=== PATIENT | female | born 1950 | race African-American/Black ===

== ENCOUNTER 2016-06-11 08:32 | Emergency (ER) | payer MEDICARE, MEDICAID ==
[~2016-06-11 08:32] MED LIST: Donnatal Elixir 16.2 MG/5 ML UDCUP ONE; Sodium Chloride 0.9% 1,000 ML BAG ONE
[2016-06-11 09:26] LABS: #Basophils 0.2 thou/uL (0.0-0.2); #Lymphocytes 2.5 thou/uL (1.20-3.40); #Monocytes 0.5 thou/uL (0.11-0.59); %Eosinophils 0.3 % (0.0-10.0); %Lymphocytes 27.4 % (21.0-51.0); %Monocytes 5.4 % (0.0-10.0); %Neutrophils 64.8 % (42.0-75.0); Hemoglobin 14.7 g/dL (12.0-16.0); Mean Corpuscular HGB CONC 33.3 g/dL (32.0-36.0); Mean Corpuscular Hemoglobin 28.3 pg (27.0-31.0); Mean Platelet Volume 7.1 fL (7.4-10.4); Platelet Count 410 thou/uL (130-400); RBC Distribution Width 11.6 % (11.5-14.5); White Blood Cell (WBC) Count 9.3 thou/uL (4.8-10.8)
[2016-06-11] MEDS ORDERED: Ondansetron HCl/PF 4 MG/2 ML Vial ONE (09:27)
[2016-06-11] MEDS ORDERED: Ketorolac Tromethamine 30 MG/ML VIAL ONE (09:27)
[2016-06-11 09:39] LABS: ALT (SGPT) 20 U/L (0-55); AST (SGOT) 19 U/L (5-34); Albumin 4.5 g/dL (3.4-4.8); Alkaline Phosphatase 125 U/L (40-150); Amylase 62 U/L (25-125); Anion Gap 21 mmol/L (10-20); BUN (Urea Nitrogen) 16 mg/dL (9.8-20.1); Bilirubin, Total 0.8 mg/dL (0.2-1.2); Calc. Creatinine Clearance 0 mL/min (70-130); Calcium 10.5 mg/dL (7.8-10.44); Carbon Dioxide 22 mmol/L (23-31); Chloride 97 mmol/L (98-107); Estimated GFR-MDRD 72; Globulin 4.4 g/dL (2.4-3.5); Glucose 222 mg/dL (80-115); Lipase 29 U/L (8-78); Potassium 3.9 mmol/L (3.5-5.1); Protein, Total 8.9 g/dL (5.8-8.1); Sodium 136 mmol/L (136-145)
--- NOTE | 2016-06-11 09:51 | RAD ---
PORTABLE CHEST 1 VIEW: Date: 06/11/16 Time: 0935 hours HISTORY: Nausea, vomiting, and upper abdominal pain. FINDINGS: Comparison made with exam of 01/29/15. The heart size is borderline. No confluent areas of consolidation, pneumothorax, chance pulmonary hector ma, or pleural effusions are seen. IMPRESSION: No radiographic evidence of acute cardiopulmonary process. POS: [facility]
[2016-06-11] MEDS ORDERED: Mag-Al Plus 1200 MG/1200 MG/120 MG/30 ML UDCUP ONE (10:37)
[2016-06-11] MEDS ORDERED: Donnatal Elixir 16.2 MG/5 ML UDCUP ONE (10:37)
[2016-06-11] MEDS ORDERED: Lidocaine Viscous Sol 2% 15 ml UD Cup ONE (10:37)
[2016-06-11 11:41] LABS: Bilirubin Negative (Negative); Blood, Urine Trace (Negative); Clarity Clear (Clear); Glucose, Urine (Dipstick) 500 mg/dL (Negative); Leukocyte Negative (Negative); Nitrite Negative (Negative); Protein, Urine (Dipstick) > or equal to 300 mg/dL (Neg-Trace); Specific Gravity, Urine 1.025 (1.005-1.030); Urobilinogen 0.2 mg/dL (0.2-1.0); pH, Urine 8.5 (5.0-9.0)
[2016-06-11 11:52] LABS: Bacteria/HPF Rare-Few HPF (None Seen); RBC/HPF 0-3 HPF (0-3); Squamous Epithelial 0-3 HPF (0-3); WBC/HPF None Seen HPF (0-3)
--- NOTE | 2016-06-11 13:33 | CT ---
CT ABDOMEN AND PELVIS WITH IV CONTRAST: TECHNIQUE: Multiple axial tomograms were obtained through the abdomen and pelvis with IV enhancement. Oral con trast was given. HISTORY: Upper abdominal pain. Vomiting. FINDINGS: Lung bases are clear. Liver, spleen, and pancreas appear unremarkable. Stomach and duodenum appear unremarkable. Adrenal glands appear normal. Kidneys unremarkable. Urinary bladder is mildly contracted and unremarkable. Small bowel loops are normal caliber. Appendix appears normal. Scattered stool throughout the colo n. No evidence of diverticulitis or other inflammatory process. Aorta is normal caliber. No adenopathy. IMPRESSION: No evidence of acute process. POS: [facility]
[2016-06-11] MEDS ORDERED: Acetaminophen 500 MG TAB ONE (17:10)
== END 2016-06-11 14:50 | disposition home or self-care (01) ==
LOC: MADERS 08:32
DX: K29.00 Acute gastritis without bleeding (principal); I10 Essential (primary) hypertension; E11.9 Type 2 diabetes mellitus without complications; Z79.899 Other long term (current) drug therapy; Z79.4 Long term (current) use of insulin
CPT/HCPCS: 71010; 74177; 80053; 81003; 81015; 82150; 83690; 83880; 85025; 87086; 93005; 96361; 96374; 96375; J1885; J2270; J2405; J7050

== ENCOUNTER 2017-01-30 06:53 | Emergency (ER) | payer MEDICARE, MEDICAID ==
[2017-01-30] MEDS ORDERED: Ondansetron ODT 4 MG TAB ONE (07:24)
[2017-01-30 07:38] LABS: Bilirubin Negative (Negative); Blood, Urine Trace (Negative); Clarity Clear (Clear); Glucose, Urine (Dipstick) 500 mg/dL (Negative); Leukocyte Negative (Negative); Nitrite Negative (Negative); Protein, Urine (Dipstick) > or equal to 300 mg/dL (Neg-Trace); Urobilinogen 0.2 mg/dL (0.2-1.0)
[2017-01-30 07:39] LABS: Bacteria/HPF None Seen HPF (None Seen); RBC/HPF 0-3 HPF (0-3); Squamous Epithelial 0-3 HPF (0-3); WBC/HPF 0-3 HPF (0-3)
--- NOTE | 2017-01-30 07:45 | RAD ---
CHEST 2 VIEWS: HISTORY: Cough. COMPARISON: 06/11/16. FINDINGS: Cardiac silhouette and pulmonary vasculature are unremarkable. Mediastinum is midline. There is no confluent airspace consolidation, or pleural fluid evident. Postoperative changes of the shoulders are apparent. IMPRESSION: No active cardiopulmonary abnormalities are demonstrated. POS: [facility]
== END 2017-01-30 08:04 | disposition home or self-care (01) ==
LOC: MADERS 06:53
DX: R11.0 Nausea (principal); I10 Essential (primary) hypertension; E11.9 Type 2 diabetes mellitus without complications; Z79.4 Long term (current) use of insulin
CPT/HCPCS: 36416; 71020; 81003; 81015; Q0162

== ENCOUNTER 2017-05-28 01:34 | Emergency (ER) | payer MEDICARE, MEDICAID ==
[2017-05-28] MEDS ORDERED: Diazepam 5 MG TAB ONE (02:12)
[2017-05-28] MEDS ORDERED: Naproxen 500 MG TAB ONE (02:12)
[2017-05-28] MEDS ORDERED: Lorazepam 1 MG TAB ONE (02:12)
[2017-05-28] MEDS ORDERED: HYDROcodone/Acetaminophen 10/325 mg Tablet ONE (02:12)
[2017-05-28 02:30] LABS: #Basophils 0.1 thou/uL (0.0-0.2); #Eosinphils 0.1 thou/uL (0.0-0.7); #Lymphocytes 2.6 thou/uL (1.20-3.40); #Monocytes 0.4 thou/uL (0.11-0.59); #Neutrophils 3.2 thou/uL (1.40-6.50); %Basophils 1.7 % (0.0-1.0); %Eosinophils 1.3 % (0.0-10.0); %Lymphocytes 40.3 % (21.0-51.0); %Monocytes 6.9 % (0.0-10.0); %Neutrophils 49.8 % (42.0-75.0); Hemoglobin 12.7 g/dL (12.0-16.0); Mean Corpuscular Hemoglobin 29.2 pg (27.0-31.0); Mean Corpuscular Volume 88.7 fl (81.0-99.0); Mean Platelet Volume 7.6 fL (7.4-10.4); Platelet Count 261 thou/uL (130-400); RBC Distribution Width 12.6 % (11.5-14.5); Red Blood Cell (RBC) Count 4.33 mill/uL (4.20-5.40); White Blood Cell (WBC) Count 6.4 thou/uL (4.8-10.8)
[2017-05-28 02:40] LABS: Bilirubin Negative (Negative); Blood, Urine Negative (Negative); Clarity Clear (Clear); Glucose, Urine (Dipstick) 500 mg/dL (Negative); Leukocyte Negative (Negative); Nitrite Negative (Negative); Protein, Urine (Dipstick) 30 mg/dL (Neg-Trace); Specific Gravity, Urine 1.015 (1.005-1.030); Urobilinogen 0.2 mg/dL (0.2-1.0); pH, Urine 7.5 (5.0-9.0)
[2017-05-28 02:41] LABS: Bacteria/HPF None Seen HPF (None Seen); RBC/HPF 0-3 HPF (0-3); Squamous Epithelial 0-3 HPF (0-3); WBC/HPF 0-3 HPF (0-3)
[2017-05-28 02:47] LABS: ALT (SGPT) 18 U/L (8-55); AST (SGOT) 15 U/L (5-34); Acetaminophen Less than 6.0 mcg/mL (10.0-30.0); Albumin 3.5 g/dL (3.4-4.8); Alcohol Less than 10 mg/dL (Less than 10); Alkaline Phosphatase 97 U/L (40-150); Anion Gap 14 mmol/L (10-20); BUN (Urea Nitrogen) 21 mg/dL (9.8-20.1); Bilirubin, Total 0.5 mg/dL (0.2-1.2); Calc. Creatinine Clearance 0 mL/min (70-130); Calcium 8.9 mg/dL (7.8-10.44); Carbon Dioxide 24 mmol/L (23-31); Chloride 103 mmol/L (98-107); Estimated GFR-MDRD 84; Globulin 3.4 g/dL (2.4-3.5); Glucose 333 mg/dL (80-115); Potassium 4.1 mmol/L (3.5-5.1); Protein, Total 6.9 g/dL (6.0-8.3); Salicylate Less than 8.0 mg/dL (15.0-30.0); Sodium 137 mmol/L (136-145)
== END 2017-05-28 03:55 | disposition home or self-care (01) ==
LOC: EDBD → MADERS 01:34
DX: M62.830 Muscle spasm of back (principal); I10 Essential (primary) hypertension; E11.9 Type 2 diabetes mellitus without complications; Z79.4 Long term (current) use of insulin; Z79.899 Other long term (current) drug therapy
CPT/HCPCS: 36415; 80053; 80307; 81001; 85025; 87086; 99283

== ENCOUNTER 2017-08-23 03:12 | Emergency (ER) | payer MEDICARE, OTHER ==
[2017-08-23 03:46] LABS: Bilirubin Negative (Negative); Blood, Urine Negative (Negative); Clarity Clear (Clear); Glucose, Urine (Dipstick) 250 mg/dL (Negative); Leukocyte Negative (Negative); Nitrite Negative (Negative); Protein, Urine (Dipstick) 30 mg/dL (Neg-Trace); Urobilinogen 0.2 mg/dL (0.2-1.0)
[2017-08-23 03:50] LABS: RBC/HPF 0-3 HPF (0-3); WBC/HPF 0-3 HPF (0-3)
[2017-08-23 03:51] LABS: Bacteria/HPF None Seen HPF (None Seen)
[2017-08-23 03:57] LABS: Anion Gap 18 mmol/L (10-20); BUN (Urea Nitrogen) 12 mg/dL (9.8-20.1); Calc. Creatinine Clearance 0 mL/min (70-130); Calcium 9.3 mg/dL (7.8-10.44); Carbon Dioxide 23 mmol/L (23-31); Chloride 105 mmol/L (98-107); Estimated GFR-MDRD 89; Glucose 225 mg/dL (80-115); Potassium 3.8 mmol/L (3.5-5.1); Sodium 142 mmol/L (136-145)
[2017-08-23 04:01] LABS: %Lymphocytes 17.4 % (21.0-51.0); %Neutrophils 75.6 % (42.0-75.0); Hemoglobin 12.5 g/dL (12.0-16.0); Mean Corpuscular HGB CONC 33.8 g/dL (32.0-36.0); Mean Corpuscular Hemoglobin 28.8 pg (27.0-31.0); Mean Corpuscular Volume 85.3 fL (81.0-99.0); Platelet Count 248 thou/uL (130-400); RBC Distribution Width 12.4 % (11.5-14.5); Red Blood Cell (RBC) Count 4.32 mill/uL (4.20-5.40); White Blood Cell (WBC) Count 5.6 thou/uL (4.8-10.8)
[2017-08-23 04:02] LABS: #Basophils 0.1 thou/uL (0.0-0.2); #Monocytes 0.3 thou/uL (0.11-0.59); #Neutrophils 4.3 thou/uL (1.40-6.50); %Basophils 1.5 % (0.0-1.0); %Eosinophils 0.4 % (0.0-10.0); %Monocytes 5.1 % (0.0-10.0); Eosinophils 1 % (0-10); Lymphocytes 22 % (21-51); MDiff Complete? YES; Manual Diff?? YES; Monocytes 5 % (0-10); Neutrophil 72 % (42-75)
[2017-08-23 04:03] LABS: PLT Morphology Comment Appears Adequate
[2017-08-23 04:04] LABS: RBC Morphology Normal
[2017-08-23] MEDS ORDERED: Sodium Chloride 0.9% 1,000 ML BAG ONE (07:21)
== END 2017-08-23 04:15 | disposition home or self-care (01) ==
LOC: MADERS 03:12 → EDBD 03:12 → MADERS 04:15
DX: E11.649 Type 2 diabetes mellitus with hypoglycemia without coma (principal); I10 Essential (primary) hypertension; Z79.4 Long term (current) use of insulin; Z79.899 Other long term (current) drug therapy
CPT/HCPCS: 36416; 80048; 81003; 81015; 85025; 96360; 36415-59; J7050

== ENCOUNTER 2017-10-17 00:12 | Emergency (ER) | payer MEDICARE, MEDICAID ==
[2017-10-17] MEDS ORDERED: cloNIDine 0.1mg/24 Hour PATCH ONE ×2 (01:01→01:03)
[2017-10-17] MEDS ORDERED: Metoclopramide HCl 10 MG/2 ML VIAL ONE ×2 (01:09→02:19)
[2017-10-17] MEDS ORDERED: Magnesium Sulfate 2 GM/NS 0.9% 50 ML BAG ONE (01:09)
[2017-10-17] MEDS ORDERED: Ketorolac Tromethamine 30 MG/ML VIAL ONE (01:09)
[2017-10-17] MEDS ORDERED: diphenhydrAMINE 50 MG/ML VIAL ONE (01:09)
== END 2017-10-17 02:50 | disposition home or self-care (01) ==
LOC: MADERS 00:12
DX: G43.909 Migraine, unspecified, not intractable, without status migrainosus (principal); I10 Essential (primary) hypertension; E11.9 Type 2 diabetes mellitus without complications; Z79.4 Long term (current) use of insulin; Z79.82 Long term (current) use of aspirin; Z79.899 Other long term (current) drug therapy
CPT/HCPCS: 96372; J1200; J1885; J2765; J3475

== ENCOUNTER 2017-10-18 08:49 | Emergency (ER) | payer MEDICARE, MEDICAID ==
[~2017-10-18 08:49] MED LIST changes: -Donnatal Elixir 16.2 MG/5 ML UDCUP ONE
[2017-10-18 09:29] LABS: Bilirubin Negative (Negative); Blood, Urine Small (Negative); Glucose, Urine (Dipstick) 500 mg/dL (Negative); Leukocyte Negative (Negative); Nitrite Negative (Negative); Protein, Urine (Dipstick) > or equal to 300 mg/dL (Neg-Trace); Urobilinogen 0.2 mg/dL (0.2-1.0); pH, Urine 5.5 (5.0-9.0)
[2017-10-18] MEDS ORDERED: Metoclopramide HCl 10 MG/2 ML VIAL ONE (09:36)
[2017-10-18] MEDS ORDERED: diphenhydrAMINE 50 MG/ML VIAL ONE (09:36)
[2017-10-18] MEDS ORDERED: Labetalol HCl 100 MG/20 ML VIAL ONE (09:36)
[2017-10-18 09:43] LABS: Clarity Hazy (Clear)
[2017-10-18 09:44] LABS: Bacteria/HPF 1+ HPF (None Seen); RBC/HPF 0-3 HPF (0-3); WBC/HPF 0-3 HPF (0-3)
--- NOTE | 2017-10-18 10:09 | CT ---
CT BRAIN WITHOUT CONTRAST: Date: 10/18/17 HISTORY: Headache. FINDINGS: Comparison made with exam of 10/15/15. No evidence of acute infarct, hemorrhage, midline shift, or abnormal extra-axial fluid collections ar e seen. The ventricular size is normal and the basilar cisterns are patent. Extensive calcified dural plaques, particularly involving the falx, are stable. The bony calvarium is intact. The visualized p aranasal sinuses and mastoid air cells are well aerated. IMPRESSION: No CT evidence of acute intracranial process. POS: [facility]
--- NOTE | 2017-10-18 10:10 | RAD ---
KUB: Date: 10/18/17 COMPARISON: None. HISTORY: Nausea and vomiting. FINDINGS: Supine KUB provided, limiting assessment for free intraperitoneal air and bowel obstruction. There ar e calcifications in the pelvis suggesting phleboliths. There are clips in the right upper quadrant suggesting prior cholecystectomy. The bowel gas pattern a ppears nonobstructed. IMPRESSION: No acute findings seen. POS: [facility]
[2017-10-18 10:45] LABS: Hemoglobin 14.3 g/dL (12.0-16.0); Manual Diff?? NO; Mean Corpuscular HGB CONC 32.1 g/dL (32.0-36.0); Mean Corpuscular Hemoglobin 27.4 pg (27.0-31.0); Mean Corpuscular Volume 85.3 fL (78.0-98.0); Mean Platelet Volume 6.9 fL (7.4-10.4); Platelet Count 331 thou/uL (130-400); RBC Distribution Width 11.8 % (11.5-14.5); Red Blood Cell (RBC) Count 5.23 mill/uL (4.20-5.40); White Blood Cell (WBC) Count 10.2 thou/uL (4.8-10.8)
[2017-10-18 10:46] LABS: #Basophils 0.1 thou/uL (0.0-0.2); #Monocytes 0.7 thou/uL (0.11-0.59); #Neutrophils 8.1 thou/uL (1.40-6.50); %Basophils 1.2 % (0.0-1.0); %Lymphocytes 12.4 % (21.0-51.0); %Monocytes 7.1 % (0.0-10.0); %Neutrophils 79.2 % (42.0-75.0); MDiff Complete? YES
[2017-10-18 10:55] LABS: CKMB 3.1 ng/mL (0-6.6); Troponin I 0.022 ng/mL (< 0.028)
[2017-10-18 11:01] LABS: ALT (SGPT) 15 U/L (8-55); AST (SGOT) 16 U/L (5-34); Alkaline Phosphatase 99 U/L (40-150); Anion Gap 19 mmol/L (10-20); BUN (Urea Nitrogen) 19 mg/dL (9.8-20.1); Bilirubin, Total 1.4 mg/dL (0.2-1.2); Calc. Creatinine Clearance 0 mL/min (70-130); Calcium 9.5 mg/dL (7.8-10.44); Carbon Dioxide 24 mmol/L (23-31); Chloride 95 mmol/L (98-107); Estimated GFR-MDRD 61; Globulin 3.9 g/dL (2.4-3.5); Glucose 424 mg/dL (80-115); Lipase 5 U/L (8-78); Magnesium 2.6 mg/dL (1.6-2.6); Potassium 4.4 mmol/L (3.5-5.1); Protein, Total 7.9 g/dL (6.0-8.3); Sodium 134 mmol/L (136-145)
[2017-10-18 11:24] LABS: #Lymphocytes 1.3 thou/uL (1.20-3.40)
[2017-10-18] MEDS ORDERED: Insulin Regular 300 UNITS/3 ML VIAL ONE (11:25)
[2017-10-18] MEDS ORDERED: Amlodipine 5 MG TAB ONE (12:10)
== END 2017-10-18 13:00 | disposition home or self-care (01) ==
LOC: MADERS 08:49
DX: I10 Essential (primary) hypertension (principal); E11.65 Type 2 diabetes mellitus with hyperglycemia; G43.909 Migraine, unspecified, not intractable, without status migrainosus; Z79.899 Other long term (current) drug therapy; Z79.82 Long term (current) use of aspirin; Z79.4 Long term (current) use of insulin
CPT/HCPCS: 36415; 70450; 74018; 80053; 81003; 81015; 82553; 83690; 83735; 84484; 85025; 85652; 93005; 96374; 96375; 96376; J1200; J1815; J2765; J7050

== ENCOUNTER 2017-11-06 06:54 | Emergency (ER) | payer MEDICARE, MEDICAID ==
[2017-11-06] MEDS ORDERED: Cephalexin 500 MG CAP ONE (08:07)
[2017-11-06] MEDS ORDERED: Naproxen 500 MG TAB ONE (08:07)
[2017-11-06] MEDS ORDERED: Benzonatate 100 MG CAP ONE (08:07)
[2017-11-06 08:11] LABS: #Basophils 0.1 thou/uL (0.0-0.2); #Eosinphils 0.1 thou/uL (0.0-0.7); #Lymphocytes 2.3 thou/uL (1.20-3.40); #Monocytes 0.5 thou/uL (0.11-0.59); #Neutrophils 2.6 thou/uL (1.40-6.50); %Basophils 1.9 % (0.0-1.0); %Eosinophils 1.8 % (0.0-10.0); %Lymphocytes 41.5 % (21.0-51.0); %Monocytes 8.4 % (0.0-10.0); %Neutrophils 46.5 % (42.0-75.0); Hemoglobin 12.5 g/dL (12.0-16.0); Mean Corpuscular HGB CONC 33.2 g/dL (32.0-36.0); Mean Corpuscular Hemoglobin 28.3 pg (27.0-31.0); Mean Corpuscular Volume 85.5 fL (78.0-98.0); Mean Platelet Volume 6.6 fL (7.4-10.4); Platelet Count 233 thou/uL (130-400); RBC Distribution Width 11.7 % (11.5-14.5); Red Blood Cell (RBC) Count 4.41 mill/uL (4.20-5.40); White Blood Cell (WBC) Count 5.6 thou/uL (4.8-10.8)
[2017-11-06 08:25] LABS: ALT (SGPT) 11 U/L (8-55); AST (SGOT) 14 U/L (5-34); Albumin 3.5 g/dL (3.4-4.8); Alkaline Phosphatase 72 U/L (40-150); Anion Gap 18 mmol/L (10-20); BUN (Urea Nitrogen) 15 mg/dL (9.8-20.1); Bilirubin, Total 0.5 mg/dL (0.2-1.2); Calc. Creatinine Clearance 0 mL/min (70-130); Calcium 9.2 mg/dL (7.8-10.44); Carbon Dioxide 21 mmol/L (23-31); Chloride 107 mmol/L (98-107); Estimated GFR-MDRD Greater than 90; Glucose 106 mg/dL (80-115); Protein, Total 6.5 g/dL (6.0-8.3); Sodium 142 mmol/L (136-145)
--- NOTE | 2017-11-06 09:11 | RAD ---
RIGHT HAND 3 VIEWS: Date: 11/06/17 PROVIDED CLINICAL HISTORY: Pain. FINDINGS: No evidence for fracture or other acute osseous abnormality. Degenerative changes are seen. Alignment appears anatomic. Joint spaces appear preserved. IMPRESSION: No evidence for an acute osseous abnormality. If there is persistent clinical concern, conservative m anagement and follow-up imaging advised. POS: [facility]
== END 2017-11-06 08:40 | disposition home or self-care (01) ==
LOC: MADERS 06:54
DX: M79.641 Pain in right hand (principal); J01.90 Acute sinusitis, unspecified; I10 Essential (primary) hypertension; E11.9 Type 2 diabetes mellitus without complications; Z79.4 Long term (current) use of insulin; G43.909 Migraine, unspecified, not intractable, without status migrainosus; Z79.82 Long term (current) use of aspirin; Z79.899 Other long term (current) drug therapy
CPT/HCPCS: 36415; 80053; 83880; 85025

== ENCOUNTER 2018-01-04 08:02 | Inpatient (IN) | payer MEDICARE, MEDICAID ==
[2018-01-04] MEDS ORDERED: diphenhydrAMINE 50 MG/ML VIAL ONE (08:42)
[2018-01-04] MEDS ORDERED: Metoclopramide HCl 10 MG/2 ML VIAL ONE (08:42)
[2018-01-04] MEDS ORDERED: Acetaminophen 500 MG TAB ONE (08:42)
[2018-01-04 08:46] LABS: #Basophils 0.2 thou/uL (0.0-0.2); #Monocytes 0.7 thou/uL (0.11-0.59); #Neutrophils 4.5 thou/uL (1.40-6.50); %Basophils 2.4 % (0.0-1.0); %Eosinophils 0.5 % (0.0-10.0); %Monocytes 9.5 % (0.0-10.0); %Neutrophils 60.6 % (42.0-75.0); Bilirubin Negative (Negative); Blood, Urine Negative (Negative); Glucose, Urine (Dipstick) 100 mg/dL (Negative); Hemoglobin 12.5 g/dL (12.0-16.0); Leukocyte Trace (Negative); Mean Corpuscular HGB CONC 33.5 g/dL (32.0-36.0); Mean Corpuscular Hemoglobin 28.7 pg (27.0-31.0); Mean Corpuscular Volume 85.6 fL (78.0-98.0); Nitrite Negative (Negative); Platelet Count 341 thou/uL (130-400); Protein, Urine (Dipstick) Trace mg/dL (Neg-Trace); RBC Distribution Width 11.2 % (11.5-14.5); Red Blood Cell (RBC) Count 4.36 mill/uL (4.20-5.40); Urobilinogen 0.2 mg/dL (0.2-1.0); White Blood Cell (WBC) Count 7.3 thou/uL (4.8-10.8)
[2018-01-04 08:54] LABS: Clarity Cloudy (Clear)
[2018-01-04 08:55] LABS: Bacteria/HPF Rare-Few HPF (None Seen); RBC/HPF 0-3 HPF (0-3); WBC/HPF 0-3 HPF (0-3)
[2018-01-04 09:00] LABS: Anion Gap 19 mmol/L (10-20); BUN (Urea Nitrogen) 41 mg/dL (9.8-20.1); Calc. Creatinine Clearance 0 mL/min (70-130); Carbon Dioxide 22 mmol/L (23-31); Chloride 89 mmol/L (98-107); Estimated GFR-MDRD 30; Potassium 3.5 mmol/L (3.5-5.1); Sodium 126 mmol/L (136-145)
[2018-01-04 09:01] LABS: ALT (SGPT) 11 U/L (8-55); AST (SGOT) 15 U/L (5-34); Albumin 3.6 g/dL (3.4-4.8); Alkaline Phosphatase 86 U/L (40-150); Bilirubin, Total 0.7 mg/dL (0.2-1.2); Globulin 3.3 g/dL (2.4-3.5); Glucose 372 mg/dL (80-115); Protein, Total 6.9 g/dL (6.0-8.3)
[2018-01-04] MEDS ORDERED: Insulin Regular 300 UNITS/3 ML VIAL ONE (09:23)
[2018-01-04] MEDS ORDERED: HYDROcodone/Acetaminophen 5/325 mg Tablet PO PRN ×2 (12:00)
[2018-01-04] MEDS ORDERED: Ondansetron ODT 4 MG TAB PO PRN (12:01)
[2018-01-04] MEDS: Sodium Chloride 0.9% 1,000 ML IV SCH ×3 (12:26→17:50)
[2018-01-04 12:32] VITALS: BMI 28.5
[2018-01-04] MEDS ORDERED: hydrOXYzine 25 MG TAB PO PRN (13:20)
[2018-01-04] MEDS ORDERED: Dextrose 50% Abboject 50 ML SYRINGE SLOW IVP PRN (13:24)
[2018-01-04] MEDS ORDERED: Dextrose 5% in Water 1,000 ML IV PRN (13:24)
[2018-01-04] MEDS: Insulin Regular 300 UNITS/3 ML VIAL SC PRN (16:37)
[2018-01-04] MEDS: PATIENT'S HOME MEDICATION EA EYE SCH ×2 (16:45→21:12)
[2018-01-04] MEDS ORDERED: POLYMYXIN B EA EYE SCH (17:00)
[2018-01-04] MEDS ORDERED: DEXAMETHASONE EA EYE SCH (17:00)
[2018-01-04] MEDS ORDERED: NEOMYCIN EA EYE SCH (17:00)
[2018-01-04] MEDS: Acetaminophen 325 MG TAB PO PRN (17:44)
[2018-01-04] MEDS ORDERED: Non-Formulary Item 1 EACH (Insulin Detemir [Levemir] 50 UNIT) SQ SCH (21:00)
[2018-01-04] MEDS: Lantus 1000 UNITS/10 ML VIAL SC SCH (21:11)
[2018-01-04] MEDS: Famotidine 20 MG TAB PO SCH (21:12)
[2018-01-05] MEDS ORDERED: Simethicone Chewable 80 MG TAB PO PRN (01:28)
[2018-01-05] MEDS ORDERED: Hyoscyamine Sulfate SL 0.125 mg Tablet SL PRN (01:30)
[2018-01-05] MEDS: Acetaminophen 325 MG TAB PO PRN ×2 (01:37→17:14)
[2018-01-05] MEDS: Sodium Chloride 0.9% 1,000 ML IV SCH (04:55)
--- NOTE | 2018-01-05 05:11 | HP ---
ATTENDING DOCTOR: Clarissa Blas M.D. REASON FOR ADMISSION: Dehydration, hyperglycemia, acute kidney injury. HISTORY OF PRESENT ILLNESS AND HOSPITAL COURSE: Ms. Balderas is a 67-year-old -[place] female with significant history of hypertension, diabetes, insulin-requiring, dyslipidemia. The patient reports that she has been having right-sided headache associated with blurred vision lately. Reports that three to four weeks ago, she noted that symptoms were associated with swelling of the right side of the face that eventually noted to the left side of the face as well. Reports that she could hardly see at that time, so she went to an utility specialist in [place]. She has been followed up by an utility specialist in [place] and was treated with oral antibiotics that she completed for 3 week course. She reports that every week, she went back to [place] specialist for her eyes. Above symptoms eventually subsided and overall visual changes have improved. Over the course of un recalled oral antibiotics, the patient reports that she has been having nausea and vomiting almost every day. The patient reports that she has been having a hard time with her oral intake as she easily throws up over the past 3 weeks. Her sugar lately has been running between 160s to 300s. When she woke up this morning, she reports recurrence of right- sided headache that feels like tingling sensation in the right side above the forehead. When her sugar was checked, she reports that it was in the 300s before breakfast. The patient does not feel well, so she subsequently went to [place] [facility] for further evaluation. In the ER there was no focal deficits reported. Her lab work showed elevated blood sugar without evidence of DKA. Her sodium was down to 130 and with marked acute kidney injury. Her creatinine was notably high at 2.0 range, in comparison to her baseline of 0.6 from the last lab test she had. The patient received sodium chloride, Novolin R, metoclopramide, Tylenol extra strength, diphenhydramine injections form the ER. Her blood sugar went down to 200+ after receiving the Novolin R subcutaneously. The patient was subsequently admitted to [facility] for supportive medical management of clinical dehydration associated with acute kidney injury, hyponatremia and hyperglycemia without DKA. When admitted to the floor, patient reports that she is feeling a little better. She still has some migraine headache that throbs on the right temporal side. She was eating her dinner tray when examined. She reports no apparent new issues. PAST MEDICAL HISTORY: Type 2 diabetes diagnosed in 1996, hypertension 1996, dyslipidemia, chronic GERD, migraine headaches, CKD stage 2, and diabetic neuropathy. SURGICAL HISTORY: Bilateral tubal ligation in 1977, partial hysterectomy 1983, gallbladder 02/2002, cataract removal, 02/2009. FAMILY HISTORY: Father is at 79 years of age with history of high blood pressure, and heart problems. Mother is alive at 86 years old with history of diabetes, high blood pressure, dyslipidemia. She has 7 brothers, 9 sisters, 3 sons, and 7 daughters. SOCIAL HISTORY: She denies smoking, illicit drug use or alcohol use. CURRENT MEDICATIONS: Aspirin 81 mg p.o. daily, Levemir 45 units subcutaneous b.i.d., hydrochlorothiazide 12.5 mg 2 tablets in the morning once a daily, lisinopril 400 mg p.o. daily, Trulicity 0.6 mg subcu every 7 days due every Tuesday, hydroxyzine 25 mg p.o. at bedtime p.r.n. for itching. Maxitrol eye drops 1 drop q.i.d. in each eye. ALLERGIES: NKDA. REVIEW OF SYSTEMS: Reports fatigue, general weakness. No fever, no chills, no loss of appetite. HEENT: As per HPI. No cold symptoms, no acute hearing changes. Respiratory: No cough, sputum production, bloody sputum, pain with breathing, wheezing. Cardiac: No chest pain, orthopnea, dyspnea on exertion, paroxysmal nocturnal dyspnea, leg edema. GI: Reports nausea, vomiting. Denies abdominal pain, diarrhea, constipation, rectal bleeding. Genitourinary: No dysuria, hematuria, frequency, urgency or incontinence. Musculoskeletal: Reports intermittent arthralgia, no joint effusion, no redness. No myalgia. Neurologic: No focal numbness, focal weakness abnormality of gait. seizures, ticks or tremors. Psychiatric: No anxiety, depression, hallucinations, insomnia. Skin: No rashes, no lesions. Reports recent history of generalized itching that has improved with oral antihistamine. PHYSICAL EXAMINATION: VITAL SIGNS: Blood pressure 142/67, temperature 98.3, pulse 85, respirations 20 , O2 saturation 99% at room air, weight 161 pounds and 4 ounces, height 5 feet 3 inches. GENERAL: The patient is awake, alert, oriented x3, not in distress, comfortable on exam. No signs of agony. HEENT: Normocephalic, atraumatic. PERRL. Intact EOM. Anicteric sclerae. No eye discharge. No injected sclerae, mildly erythematous conjunctivae. No periorbital swelling. Clear naris. Oropharynx normal looking. Oral mucosa is moist. NECK: Supple. No LAD, no JVD, no bruit. CHEST: Normal excursion, clear to auscultation bilaterally. HEART: RRR. Normal S1 and S2. No murmurs. ABDOMEN: Obese, soft, normoactive bowel sounds, nondistended, nontender. No rebound or guarding. Negative CVA tenderness bilaterally. EXTREMITIES: No edema, no cyanosis. Wears compression stockings. SKIN: Skin dry, poor turgor and elasticity. No rashes, no lesions. NEUROLOGIC: Nonfocal. Gait normal. Cranial nerves intact. PSYCHIATRIC: Appears calm with appropriate demeanor, mood and affect. LABORATORY AND X-RAY FINDINGS: WBC 7.3, hemoglobin 12.5, hematocrit 37.3, platelets 341. Sodium 126, potassium 3.5, BUN 41, creatinine 2.03, estimated GFR 30, glucose 372, calcium 9.0. Albumin 3.6. Anion gap 19. Liver function enzymes within normal limits. Urine glucose 100, ketones trace, WBCs 0 to 3, RBCs 0 to 3. ASSESSMENT: 1. Dehydration secondary to poor oral intake. 2. Acute kidney injury, likely prerenal azotemia secondary to #1. 3. Acute nausea and vomiting, likely secondary to recent antibiotic intolerance. 4. Diabetes type 2, insulin requiring with hyperglycemia.No evidence of DKA. 5. Acute conjunctivitis, nonspecific. 6. Hypertension. 7. Dyslipidemia. 8. Obesity. PLAN: The patient is admitted to med/surg for supportive medical management. We will continue volume hydration. Routine electrolytes monitoring. To avoid nephrotoxic agents at this time. Encourage the patient to increase fluid intake and caloric intake. We will continue to monitor Accu-Cheks. Hypoglycemia, on many hypoglycemic precautions. We will continue home medications as modified per list. We will hold atorvastatin at this point lisinopril and diuretics secondary to impaired renal function. The patient's blood pressure is well controlled. I will consider other antihypertensive alternatives if blood pressure any rises up along the course. Supportive symptomatic care for migraine headache with Tylenol and/or [place]. Serial lab ordered. Gastrointestinal prophylaxis with Famotidine. Deep venous thrombosis prophylaxis with SCD. Further recommendations depending on the hospital course. CODE STATUS: The patient reports FULL CODE. Estimated length of stay 2-3 days. MTDD
[2018-01-05 05:49] LABS: Anion Gap 11 mmol/L (10-20)
[2018-01-05 05:53] LABS: BUN (Urea Nitrogen) 26 mg/dL (9.8-20.1); Calc. Creatinine Clearance 66 mL/min (70-130); Calcium 8.9 mg/dL (7.8-10.44); Carbon Dioxide 29 mmol/L (23-31); Chloride 106 mmol/L (98-107); Estimated GFR-MDRD 70; Glucose 166 mg/dL (80-115); Potassium 4.3 mmol/L (3.5-5.1); Sodium 142 mmol/L (136-145)
[2018-01-05] MEDS: Lantus 1000 UNITS/10 ML VIAL SC SCH ×2 (08:07→20:54)
[2018-01-05] MEDS: Famotidine 20 MG TAB PO SCH ×2 (08:07→20:54)
[2018-01-05] MEDS: PATIENT'S HOME MEDICATION EA EYE SCH ×4 (08:10→20:56)
[2018-01-05] MEDS ORDERED: TRULICITY PATIENT'S HOME MEDICATION SC SCH (09:00)
[2018-01-05] MEDS ORDERED: Lisinopril 10 MG TAB PO SCH (09:30)
[2018-01-05] MEDS: Insulin Regular 300 UNITS/3 ML VIAL SC PRN ×2 (12:08→17:16)
[2018-01-05 14:21] LABS: Bilirubin Negative (Negative); Blood, Urine Negative (Negative); Clarity Clear (Clear); Glucose, Urine (Dipstick) 100 mg/dL (Negative); Leukocyte Negative (Negative); Nitrite Negative (Negative); Protein, Urine (Dipstick) Negative (Neg-Trace); Specific Gravity, Urine 1.015 (1.005-1.030); Urobilinogen 0.2 mg/dL (0.2-1.0)
[2018-01-05 14:23] LABS: Bacteria/HPF Rare-Few HPF (None Seen); RBC/HPF 0-3 HPF (0-3); Squamous Epithelial 21-50 HPF (0-3); WBC/HPF 0-3 HPF (0-3)
[2018-01-05] MEDS: hydrALAZINE 10 MG TAB PO PRN (17:17)
[2018-01-06] MEDS: Acetaminophen 325 MG TAB PO PRN (04:12)
[2018-01-06] MEDS: Lantus 1000 UNITS/10 ML VIAL SC SCH ×2 (08:19→20:38)
[2018-01-06] MEDS: Famotidine 20 MG TAB PO SCH ×2 (08:19→20:37)
[2018-01-06] MEDS: PATIENT'S HOME MEDICATION EA EYE SCH ×4 (08:22→20:39)
[2018-01-06] MEDS: hydrALAZINE 10 MG TAB PO PRN ×2 (13:52→20:41)
[2018-01-06] MEDS ORDERED: Lisinopril 10 MG TAB PO SCH (14:45)
[2018-01-06] MEDS: Insulin Regular 300 UNITS/3 ML VIAL SC PRN (17:24)
[2018-01-07] MEDS: Acetaminophen 325 MG TAB PO PRN (03:42)
[2018-01-07 05:12] VITALS: TEMP 96.4
[2018-01-07 08:12] VITALS: BP 156/68
[2018-01-07] MEDS: Famotidine 20 MG TAB PO SCH (08:42)
[2018-01-07] MEDS: Lantus 1000 UNITS/10 ML VIAL SC SCH (08:43)
[2018-01-07] MEDS: PATIENT'S HOME MEDICATION EA EYE SCH (08:43)
[2018-01-07] MEDS ORDERED: Lisinopril 10 MG TAB PO SCH (09:00)
[2018-01-11] MEDS ORDERED: TRULICITY PATIENT'S HOME MEDICATION SC SCH (15:00)
== END 2018-01-07 09:05 | disposition swing bed (61) | DRG 683 ==
LOC: MADERS 08:02 → MADMS 09:52
PROVIDERS: ADMIT Family Medicine; ATTEND Family Medicine
DX: N17.9 Acute kidney failure, unspecified (principal); E87.1 Hypo-osmolality and hyponatremia; E86.0 Dehydration; E11.65 Type 2 diabetes mellitus with hyperglycemia; E78.5 Hyperlipidemia, unspecified; Z79.4 Long term (current) use of insulin; K21.9 Gastro-esophageal reflux disease without esophagitis; I12.9 Hypertensive chronic kidney disease with stage 1 through stage 4 chronic kidney disease, or unspecified chronic kidney disease; E11.22 Type 2 diabetes mellitus with diabetic chronic kidney disease; N18.2 Chronic kidney disease, stage 2 (mild); E11.40 Type 2 diabetes mellitus with diabetic neuropathy, unspecified; R11.2 Nausea with vomiting, unspecified; T36.95XA Adverse effect of unspecified systemic antibiotic, initial encounter; E66.9 Obesity, unspecified; H10.30 Unspecified acute conjunctivitis, unspecified eye
CPT/HCPCS: 36415; 36416; 80048; 80053; 81001; 81003; 81015; 85025; 85652; A4216; G8978-GP-CK; G8979-GP-CI; G8987-GO-CI; G8988-GO-CH; J1200; J1815; J2765; J7050

== ENCOUNTER 2018-01-07 09:07 | Inpatient (IN) | payer MEDICARE, MEDICAID ==
[2018-01-07 09:10] VITALS: BMI 28.5
[2018-01-07] MEDS ORDERED: Simethicone Chewable 80 MG TAB PO PRN (09:35)
[2018-01-07] MEDS ORDERED: Ondansetron ODT 4 MG TAB PO PRN (09:35)
[2018-01-07] MEDS ORDERED: Hyoscyamine Sulfate SL 0.125 mg Tablet SL PRN (09:35)
[2018-01-07] MEDS ORDERED: HYDROcodone/Acetaminophen 5/325 mg Tablet PO PRN (09:35)
[2018-01-07] MEDS ORDERED: Senokot S 8.6-50 MG TAB PO PRN (09:39)
[2018-01-07] MEDS ORDERED: Dextrose 50% Abboject 50 ML SYRINGE SLOW IVP PRN (09:42)
[2018-01-07] MEDS ORDERED: Dextrose 5% in Water 1,000 ML IV PRN (09:42)
[2018-01-07] MEDS ORDERED: TRULICITY PATIENT'S HOME MEDICATION SC SCH (10:15)
[2018-01-07] MEDS: Acetaminophen 325 MG TAB PO PRN (10:48)
[2018-01-07] MEDS: Neomycin-Polymyxin-Hc 7.5 ML BOT EA EYE SCH ×2 (13:20→17:08)
[2018-01-07] MEDS: Famotidine 20 MG TAB PO SCH (20:51)
[2018-01-07] MEDS: Lantus 1000 UNITS/10 ML VIAL SC SCH (20:52)
[2018-01-07] MEDS: hydrALAZINE 10 MG TAB PO PRN (20:52)
[2018-01-07] MEDS: HumaLOG 300 UNITS/3 ML VIAL SC PRN (20:54)
[2018-01-07] MEDS ORDERED: PATIENT'S HOME MEDICATION EA EYE SCH (22:00)
[2018-01-08] MEDS: hydrALAZINE 10 MG TAB PO PRN (05:30)
[2018-01-08] MEDS: Neomycin-Polymyxin-Hc 7.5 ML BOT EA EYE SCH (06:49)
[2018-01-08] MEDS: Lisinopril 10 MG TAB PO SCH (07:24)
[2018-01-08] MEDS: Famotidine 20 MG TAB PO SCH ×2 (07:24→20:21)
[2018-01-08] MEDS: Lantus 1000 UNITS/10 ML VIAL SC SCH ×2 (07:25→20:21)
[2018-01-08] MEDS: Polyethylene Glycol 3350 17 GM Packet PO SCH (07:26)
[2018-01-08] MEDS: PATIENT'S HOME MEDICATION EA EYE SCH ×4 (07:26→20:23)
[2018-01-08] MEDS: HumaLOG 300 UNITS/3 ML VIAL SC PRN (20:24)
[2018-01-09] MEDS: Famotidine 20 MG TAB PO SCH ×2 (08:13→20:26)
[2018-01-09] MEDS: Lisinopril 10 MG TAB PO SCH (08:14)
[2018-01-09] MEDS: Polyethylene Glycol 3350 17 GM Packet PO SCH (08:17)
[2018-01-09] MEDS: Lantus 1000 UNITS/10 ML VIAL SC SCH ×2 (08:17→20:31)
[2018-01-09] MEDS: PATIENT'S HOME MEDICATION EA EYE SCH ×4 (08:20→20:27)
[2018-01-09] MEDS: HumaLOG 300 UNITS/3 ML VIAL SC PRN ×3 (12:17→20:31)
[2018-01-10 07:25] VITALS: TEMP 97.9
[2018-01-10] MEDS: Lisinopril 10 MG TAB PO SCH (08:07)
[2018-01-10] MEDS: Famotidine 20 MG TAB PO SCH (08:07)
[2018-01-10] MEDS: Acetaminophen 325 MG TAB PO PRN (08:07)
[2018-01-10] MEDS: Polyethylene Glycol 3350 17 GM Packet PO SCH (08:07)
[2018-01-10] MEDS: Lantus 1000 UNITS/10 ML VIAL SC SCH (08:08)
[2018-01-10] MEDS: PATIENT'S HOME MEDICATION EA EYE SCH ×2 (08:15→12:19)
[2018-01-10] MEDS ORDERED: Hydrochlorothiazide 25 MG TAB PO SCH (10:00)
[2018-01-10 11:37] VITALS: BP 141/74
[2018-01-10] MEDS: HumaLOG 300 UNITS/3 ML VIAL SC PRN (12:20)
--- NOTE | 2018-01-11 05:49 | DIS ---
DATE OF ADMISSION: 01/07/2018 DATE OF DISCHARGE: 01/10/2018 REASON FOR ADMISSION: General weakness, deconditioning. FINAL DIAGNOSES: 1. Dehydration secondary to poor oral intake,from drug induced/antibiotic induced. Improved. 2. Acute kidney injury secondary to prerenal azotemia from poor oral intake. 3. Hypotension, improved. 4. Diabetes type 2, insulin-requiring, stable. 5. Deconditioning/secondary to general weakness, improved. DISPOSITION: Home. CONDITION ON DISCHARGE: stable. DIET: Diabetic, 2000 kilocalorie AHA. ACTIVITIES: Ad-loyda. FOLLOWUP: 1. With Dr. Blas in 2 weeks, sooner with concerns. 2. Continue Accu-Chek monitoring at home and keep blood sugar diary to bring the diary on next clinic visit. 3. ER precautions. 4. Follow up with auto transmission specialist in [place] on Tuesday01/16/2018 as previously scheduled. HISTORY OF PRESENT ILLNESS AND HOSPITAL COURSE: Ms. Balderas is a very pleasant 67-year-old -[place] female with history of hypertension, diabetes insulin requiring, dyslipidemia, and obesity. Apparently, the patient has had issues with her eyesight lately. She had been to an auto transmission specialist in [place] for this and was treated with oral antibiotics as outpatient. The patient reports that she did not tolerate the oral antibiotic but was able to finish the course as prescribed. She reports that she has been having nausea, vomiting with it. Unfortunately, patient could not recall the name of the medication. She reports that she had poor oral intake and become very weak due to persistent Gi issues. On the day of admission on 01/04/2018, the patient reports that she is not feeling well and when she checked her sugar, it was in the 300s. The patient's overall blood sugar has been fairly controlled and this is the first time that she had the highest reading. The patient went to the ER in [place] for further evaluation. Patient was subsequently admitted for dehydration associated with acute kidney injury deemed to be prerenal azotemia secondary to poor oral intake. She was treated with supportive medical management. After 24-hour of volume hydration, the patient' s overall kidney function as well as electrolytes had trended down to normal level. Sodium went up from 126 to 142. Her creatinine level improved from 2.03 down to 0.96. Initially, her antihypertensives were withheld secondary to dehydration and low blood pressure. After 3 midnights stay in acute care, the patient reports that she remained general weak and noted to have unsteady gait. She reports difficulty with her vision, affecting her gait. She has to hold on every wall or furniture that she can grab on when walking. She was deemed to benefit for skilled rehab prior to going back home. Patient was then transferred to swing bed thereafter for further skilled rehab. The patient's overall functional status improved with further gait training, strengthening exercises in rehab. On the day of discharge, the patient was walking about 350 feet with no use of assistive device. Overall, gait has been much steadier. On 01/10/2018, the patient was adamant to go home. She states that she feels fine and back to her baseline functional status. She refuses to have further therapy at home with home health or outpatient therapy. On 01/10/2018, the patient was deemed stable to be discharged. Her blood pressure has been better overall with resumption of her lisinopril 40 mg and hydrochlorothiazide 12.5 mg p.o. daily. Vital signs prior to discharge, blood pressure 141/74, pulse 98, temperature 97.9, O2 sats 98% on room air, respiration 19. MTDD
[2018-01-11] MEDS ORDERED: Hydrochlorothiazide 25 MG TAB PO SCH (09:00)
[2018-01-11] MEDS ORDERED: TRULICITY PATIENT'S HOME MEDICATION SC SCH (18:00)
== END 2018-01-10 14:00 | disposition home or self-care (01) | DRG 948 ==
LOC: MADMS 09:08
PROVIDERS: ADMIT Family Medicine; ATTEND Family Medicine
DX: R53.1 Weakness (principal); N17.9 Acute kidney failure, unspecified; R26.81 Unsteadiness on feet; E86.0 Dehydration; T36.95XA Adverse effect of unspecified systemic antibiotic, initial encounter; I95.9 Hypotension, unspecified; Z79.4 Long term (current) use of insulin; E78.5 Hyperlipidemia, unspecified; E66.9 Obesity, unspecified; R11.2 Nausea with vomiting, unspecified; Z68.26 Body mass index [BMI] 26.0-26.9, adult; I12.9 Hypertensive chronic kidney disease with stage 1 through stage 4 chronic kidney disease, or unspecified chronic kidney disease; E11.22 Type 2 diabetes mellitus with diabetic chronic kidney disease; N18.2 Chronic kidney disease, stage 2 (mild); K21.9 Gastro-esophageal reflux disease without esophagitis; E11.40 Type 2 diabetes mellitus with diabetic neuropathy, unspecified; H10.30 Unspecified acute conjunctivitis, unspecified eye
CPT/HCPCS: 36416; G8987-GO-CI; G8988-GO-CH

== ENCOUNTER 2018-01-17 11:49 | Outpatient (CLI) | payer MEDICARE, MEDICAID ==
--- NOTE | 2018-01-17 14:01 | CT ---
CT BRAIN WITHOUT CONTRAST: Date: 01/17/18 HISTORY: Memory loss, confusion. Altered mental status. FINDINGS: Comparison made with exam of 10/18/17. Extensive calcified dural plaques, particularly involving the falx, are stable. No evidence of acute infarct, hemorrhage, midline shift, or abnormal extra-axial fluid collections are seen. The ventricul ar size is normal and the basilar cisterns are patent. The bony calvarium is intact. The visualized p aranasal sinuses and mastoid air cells are well aerated. IMPRESSION: Stable exam. No CT evidence of acute intracranial process. POS: [facility]
== END 2018-01-17 11:50 | disposition home or self-care (01) ==
LOC: MADCT 11:49
PROVIDERS: ATTEND Family Medicine
DX: R41.0 Disorientation, unspecified (principal); R41.3 Other amnesia
CPT/HCPCS: 70450

== ENCOUNTER 2018-05-19 11:19 | Emergency (ER) | payer MEDICARE, MEDICAID ==
[2018-05-19] MEDS ORDERED: HYDROcodone/Acetaminophen 5/325 mg Tablet ONE (11:50)
--- NOTE | 2018-05-19 12:59 | CT ---
CT ABDOMEN AND PELVIS: 05/19/2018 HISTORY: Low back pain. Intermittent pain for 1-2 months. COMPARISON: None. TECHNIQUE: Axial CT imaging obtained at 5 mm intervals, from the lung bases through the pubic symphysis, withou t contrast. Coronal reformatted imaging obtained. FINDINGS: The lack of contrast media limits assessment of the viscera, bowel, and vascular structures, and for lymphadenopathy. The imaged lung bases are unremarkable. Cholecystectomy clips are present. No free intraperitoneal air or fluid is seen. There are numerous foci of gas within the subcutaneous fat, in the anterior right lower quadrant, sug gesting subcutaneous injections. Clinical correlation required. The stomach is distended and filled with debris/fluid. The liver, spleen, pancreas, and adrenal glands demonstrate a normal noncontrast -enhanced appear. No evidence for nephrolithiasis or obstructive uropathy is noted on either side. Limited assessment of the bowel, without contrast media, appears grossly unremarkable. No appendicea l inflammatory change is seen. The uterus appears surgically absent. Evaluation of the arterial structures is limited without contrast media. There is no evidence for an abdominal aortic aneurysm. There is a retroaortic left renal vein. There is a punctate, nonobstructing stone noted in the upper pole of the left kidney. There is no ev idence for obstructive uropathy on the left. Review of the osseous structures demonstrates multilevel lower lumbar spine facet hypertrophic change . No worrisome lytic or blastic bone lesion. No acute osseous abnormality. IMPRESSION: Nonobstructing stone, upper pole, left kidney. No evidence for obstructive uropathy on either side. No evidence for abdominal aortic aneurysm. POS: [facility]
== END 2018-05-19 12:50 | disposition home or self-care (01) ==
LOC: MADERS 11:19
DX: M54.41 Lumbago with sciatica, right side (principal); I10 Essential (primary) hypertension; E11.9 Type 2 diabetes mellitus without complications; Z79.4 Long term (current) use of insulin; Z79.82 Long term (current) use of aspirin; Z79.899 Other long term (current) drug therapy
CPT/HCPCS: 74176

== ENCOUNTER 2018-08-15 08:40 | Emergency (ER) | payer MEDICARE, MEDICAID ==
[2018-08-15 09:59] LABS: #Basophils 0.1 thou/uL (0.0-0.2); #Lymphocytes 1.1 thou/uL (1.20-3.40); #Monocytes 0.5 thou/uL (0.11-0.59); #Neutrophils 2.3 thou/uL (1.40-6.50); %Basophils 2.9 % (0.0-1.0); %Eosinophils 0.7 % (0.0-10.0); %Lymphocytes 27.9 % (21.0-51.0); %Monocytes 11.5 % (0.0-10.0); %Neutrophils 56.9 % (42.0-75.0); Hemoglobin 12.6 g/dL (12.0-16.0); Mean Corpuscular HGB CONC 31.7 g/dL (32.0-36.0); Mean Corpuscular Hemoglobin 27.5 pg (27.0-31.0); Mean Corpuscular Volume 86.8 fL (78.0-98.0); Mean Platelet Volume 6.6 fL (7.4-10.4); Platelet Count 160 thou/uL (130-400); Red Blood Cell (RBC) Count 4.59 mill/uL (4.20-5.40)
[2018-08-15 10:06] LABS: INR-International Normal Ratio 0.9; Prothrombin Time 12.2 SEC (12.0-14.7)
[2018-08-15] MEDS ORDERED: Ketorolac Tromethamine 30 MG/ML VIAL ONE (10:07)
[2018-08-15 10:14] LABS: ALT (SGPT) 18 U/L (8-55); AST (SGOT) 21 U/L (5-34); Albumin 3.6 g/dL (3.4-4.8); Alkaline Phosphatase 98 U/L (40-150); Anion Gap 12 mmol/L (10-20); BUN (Urea Nitrogen) 12 mg/dL (9.8-20.1); Bilirubin, Total 0.9 mg/dL (0.2-1.2); Calc. Creatinine Clearance 0 mL/min (70-130); Carbon Dioxide 22 mmol/L (23-31); Chloride 105 mmol/L (98-107); Estimated GFR-MDRD 88; Globulin 3.5 g/dL (2.4-3.5); Glucose 221 mg/dL (80-115); Potassium 4.2 mmol/L (3.5-5.1); Protein, Total 7.1 g/dL (6.0-8.3); Sodium 135 mmol/L (136-145)
== END 2018-08-15 11:20 | disposition home or self-care (01) ==
LOC: MADERS 08:40
DX: G43.909 Migraine, unspecified, not intractable, without status migrainosus (principal); I10 Essential (primary) hypertension; E11.9 Type 2 diabetes mellitus without complications; Z79.4 Long term (current) use of insulin; Z79.891 Long term (current) use of opiate analgesic; Z79.82 Long term (current) use of aspirin; Z79.899 Other long term (current) drug therapy
CPT/HCPCS: 80053; 85025; 85610; 96374; J1885

== ENCOUNTER 2019-01-09 05:18 | Emergency (ER) | payer MEDICARE, OTHER ==
[2019-01-09] MEDS ORDERED: Morphine 10 MG/ML VIAL ONE (06:12)
[2019-01-09] MEDS ORDERED: diphenhydrAMINE 50 MG/ML VIAL ONE (06:13)
[2019-01-09] MEDS ORDERED: Ondansetron PF 4 MG/2 ML Vial ONE (06:13)
[2019-01-09 06:17] LABS: #Basophils 0.1 thou/uL (0.0-0.2); #Lymphocytes 1.7 thou/uL (1.20-3.40); #Monocytes 0.4 thou/uL (0.11-0.59); #Neutrophils 3.4 thou/uL (1.40-6.50); %Eosinophils 0.3 % (0.0-10.0); %Lymphocytes 30.3 % (21.0-51.0); %Monocytes 7.6 % (0.0-10.0); %Neutrophils 59.9 % (42.0-75.0); Hemoglobin 13.6 g/dL (12.0-16.0); Mean Corpuscular HGB CONC 32.6 g/dL (32.0-36.0); Mean Corpuscular Hemoglobin 27.1 pg (27.0-31.0); Mean Corpuscular Volume 83.3 fL (78.0-98.0); Mean Platelet Volume 6.8 fL (7.4-10.4); Platelet Count 288 thou/uL (130-400); RBC Distribution Width 12.1 % (11.5-14.5); White Blood Cell (WBC) Count 5.7 thou/uL (4.8-10.8)
[2019-01-09 06:22] LABS: Bilirubin Negative (Negative); Blood, Urine Trace (Negative); Clarity Clear (Clear); Glucose, Urine (Dipstick) >=1000 mg/dL (Negative); Leukocyte Negative (Negative); Nitrite Negative (Negative); Protein, Urine (Dipstick) > or equal to 300 mg/dL (Neg-Trace); Urobilinogen 0.2 mg/dL (Less than 2)
[2019-01-09 06:23] LABS: Bacteria/HPF Rare-Few HPF (None Seen); RBC/HPF 0-3 HPF (0-3); Squamous Epithelial 0-3 HPF (0-3); WBC/HPF 0-3 HPF (0-3)
[2019-01-09 06:30] LABS: ALT (SGPT) 10 U/L (8-55); AST (SGOT) 14 U/L (5-34); Alkaline Phosphatase 98 U/L (40-150); Anion Gap 18 mmol/L (10-20); BUN (Urea Nitrogen) 18 mg/dL (9.8-20.1); Bilirubin, Total 1.2 mg/dL (0.2-1.2); Calc. Creatinine Clearance 0 mL/min (70-130); Calcium 9.7 mg/dL (7.8-10.44); Carbon Dioxide 23 mmol/L (23-31); Chloride 100 mmol/L (98-107); Estimated GFR-MDRD 66; Globulin 3.8 g/dL (2.4-3.5); Glucose 311 mg/dL (80-115); Lipase 14 U/L (8-78); Potassium 3.7 mmol/L (3.5-5.1); Protein, Total 7.8 g/dL (6.0-8.3); Sodium 137 mmol/L (136-145)
[2019-01-09] MEDS ORDERED: Sodium Chloride 0.9% 1,000 ML ONE (06:53)
--- NOTE | 2019-01-09 07:23 | CT ---
CT ABDOMEN AND PELVIS WITH IV CONTRAST: Date: 01/09/19 INDICATION: 68-year-old female with upper abdominal pain since yesterday that is progressively worse; history of cholecystectomy. COMPARISON: Noncontrast CT of the abdomen and pelvis dated 05/19/[address] of the abdomen and pelvis dated 06/11/16. FINDINGS: Lung bases are clear. The gallbladder is surgically absent. No focal hepatic lesion is evident. Pancreas and adrenal glands are normal appearing. There is a small gastric diverticulum which is stable. No focal renal lesion is evident. The spleen is normal appearing. No free fluid or enlarged lymph nodes are evident. There is a normal appendix seen within the right mid abdomen. There is subcutaneous gas involving the fat of the right lower quadrant anterior abdominal wall which may be related to a recent injection. Recommend correlation. There is mild scattered colonic diverticula. Reproductive structures are not visualized and presumed to be surgically absent. The rectum and perirectal soft tissues appear within normal limits. There is scattered degenerative and osteoarthritic change. IMPRESSION: 1. No definite acute CT explanation for the patient's upper midline abdominal pain. 2. Small gastric diverticulum seen off the posterior aspect of the gastric fundus. 3. Colonic diverticulosis. 4. Subcutaneous gas involving the anterior lower abdominal wall may reflect recent subcutaneous inje ctions. Recommend correlation. POS: [facility]
--- NOTE | 2019-01-09 08:50 | RAD ---
PORTABLE CHEST: Date: 01/09/19 HISTORY: Abdominal pain. COMPARISON: 06/11/16. FINDINGS: The lung ramsey are clear. No evidence of infiltrate or vascular congestion. Heart and mediastinum un remarkable. IMPRESSION: No acute abnormality. POS: [facility]
[2019-01-09] MEDS ORDERED: Iopamidol 370 76% 100 ML VIAL ONE (10:26)
== END 2019-01-09 07:55 | disposition home or self-care (01) ==
LOC: MADERS 05:18
DX: A08.4 Viral intestinal infection, unspecified (principal); I10 Essential (primary) hypertension; E11.9 Type 2 diabetes mellitus without complications; Z79.4 Long term (current) use of insulin
CPT/HCPCS: 36416; 51701; 71045; 74177; 80053; 81003; 81015; 83605; 83690; 84484; 85025; 87040; 93005; 94760; 96361; 96374; 96375; A4353; J1200; J2270; J2405; J7050; Q9967

== ENCOUNTER 2019-03-11 10:11 | Emergency (ER) | payer MEDICAID, MEDICARE ==
[2019-03-11] MEDS ORDERED: Ibuprofen 800 MG TAB ONE (11:02)
[2019-03-11] MEDS ORDERED: Amlodipine 5 MG TAB ONE (11:02)
--- NOTE | 2019-03-11 11:18 | RAD ---
Exam:3 views left shoulder HISTORY: Pain COMPARISON: 07/11/2013 FINDINGS: Chronic changes involving the distal clavicle. Previous left rotator cuff repair. No fractu re or dislocation. Visualized left ribs are unremarkable. IMPRESSION: Chronic changes. No acute fracture or dislocation
[2019-03-11] MEDS ORDERED: Cyclobenzaprine 10 MG TAB ONE (11:42)
== END 2019-03-11 11:59 | disposition home or self-care (01) ==
LOC: MADERS 10:11
DX: S43.422A Sprain of left rotator cuff capsule, initial encounter (principal); I10 Essential (primary) hypertension; E78.5 Hyperlipidemia, unspecified; E11.9 Type 2 diabetes mellitus without complications; Z79.4 Long term (current) use of insulin; G43.909 Migraine, unspecified, not intractable, without status migrainosus; Z79.899 Other long term (current) drug therapy; Z79.82 Long term (current) use of aspirin; W19.XXXA Unspecified fall, initial encounter

== ENCOUNTER 2019-09-17 09:06 | Outpatient (CLI) | payer MEDICARE ==
[2019-09-17 09:40] LABS: ALT (SGPT) 12 U/L (8-55); AST (SGOT) 14 U/L (5-34); Albumin 3.9 g/dL (3.4-4.8); Alkaline Phosphatase 81 U/L (40-110); Anion Gap 15 mmol/L (10-20); BUN (Urea Nitrogen) 15 mg/dL (9.8-20.1); Bilirubin, Total 0.8 mg/dL (0.2-1.2); Calc. Creatinine Clearance 0 mL/min (70-130); Calcium 9.4 mg/dL (7.8-10.44); Carbon Dioxide 27 mmol/L (23-31); Cardiac Risk 3.6 (Less than 4.5); Chloride 102 mmol/L (98-107); Cholesterol 223 mg/dl (< 200 Desired); Estimated GFR-MDRD 79; Globulin 3.6 g/dL (2.4-3.5); Glucose 248 mg/dL (80-115); HDL Cholesterol 62 mg/dL (>60 Neg Risk); LDL Cholesterol, Calculated 136 mg/dL; Potassium 4.1 mmol/L (3.5-5.1); Protein, Total 7.5 g/dL (6.0-8.3); Sodium 140 mmol/L (136-145); Triglycerides 127 mg/dL (Less than 150)
[2019-09-17 15:08] LABS: Hemoglobin A1c 9.9 % (4.0-6.0)
== END 2019-09-17 09:07 | disposition home or self-care (01) ==
LOC: MADLAB 09:06
PROVIDERS: ATTEND Family Medicine
DX: E11.65 Type 2 diabetes mellitus with hyperglycemia (principal)
CPT/HCPCS: 36415; 80053; 80061; 83036

== ENCOUNTER 2019-12-24 08:35 | Emergency (ER) | payer MEDICARE, OTHER ==
--- NOTE | 2019-12-24 10:04 | RAD ---
Exam: XR Foot Rt 3 View STANDARD HISTORY: Right foot injury COMPARISON: None FINDINGS: Mild degenerative changes are seen involving the tarsal bones. Posterior and plantar calcaneal enthes ophytes are identified. No acute fracture, dislocation, or other acute osseous abnormality is identified. Mild subcutaneous soft tissue swelling seen at the dorsal aspect of the foot. IMPRESSION: No acute osseous abnormality is identified. Mild subcutaneous soft tissue swelling.
== END 2019-12-24 10:20 | disposition home or self-care (01) ==
LOC: MADERS 08:35
DX: S93.501A Unspecified sprain of right great toe, initial encounter (principal); E78.5 Hyperlipidemia, unspecified; E78.00 Pure hypercholesterolemia, unspecified; I10 Essential (primary) hypertension; E11.9 Type 2 diabetes mellitus without complications; G43.909 Migraine, unspecified, not intractable, without status migrainosus; Z79.82 Long term (current) use of aspirin; Z79.899 Other long term (current) drug therapy; Z79.4 Long term (current) use of insulin; X58.XXXA Exposure to other specified factors, initial encounter

== ENCOUNTER 2020-06-13 11:50 | Outpatient (CLI) | payer MEDICARE, MEDICAID ==
[2020-06-13 12:38] LABS: Bilirubin Negative (Negative); Blood, Urine Negative (Negative); Clarity Clear (Clear); Glucose, Urine (Dipstick) Negative (Negative); Ketone, Urine Negative (Negative); Leukocyte Negative (Negative); Nitrite Negative (Negative); Protein, Urine (Dipstick) 30 mg/dL (Neg-Trace); Urobilinogen 0.2 mg/dL (Less than 2)
[2020-06-13 12:46] LABS: RBC/HPF 0-3 HPF (0-3); Squamous Epithelial 0-3 HPF (0-3); WBC/HPF None Seen HPF (0-3)
[2020-06-13 12:47] LABS: Bacteria/HPF Rare-Few HPF (None Seen)
== END 2020-06-13 11:51 | disposition home or self-care (01) ==
LOC: MADLABSP 11:50
PROVIDERS: ATTEND Family Medicine
DX: Z87.440 Personal history of urinary (tract) infections (principal)
CPT/HCPCS: 81003; 81015

== ENCOUNTER 2020-07-04 11:05 | Outpatient (CLI) | payer MEDICARE, MEDICAID ==
[2020-07-04 17:38] LABS: Microalbumin-Urine 30.8 mg/dL
[2020-07-04 22:03] LABS: Microalbumin/24 Hr 89.32 mg/24 hr (Less than 30)
== END 2020-07-04 11:06 | disposition home or self-care (01) ==
LOC: MADLAB 11:05
PROVIDERS: ATTEND Family Medicine
DX: E11.29 Type 2 diabetes mellitus with other diabetic kidney complication (principal)
CPT/HCPCS: 82043

== ENCOUNTER 2020-07-29 10:28 | Emergency (ER) | payer MEDICARE, MEDICAID ==
[2020-07-29] MEDS ORDERED: Fluorescein Opthalmic Strip ONE (10:46)
[2020-07-29] MEDS ORDERED: Tetracaine 0.5% PF 4 ML BOT ONE (10:46)
== END 2020-07-29 11:00 | disposition home or self-care (01) ==
LOC: MADERS 10:28
DX: S00.12XA Contusion of left eyelid and periocular area, initial encounter (principal); I10 Essential (primary) hypertension; E78.5 Hyperlipidemia, unspecified; E11.9 Type 2 diabetes mellitus without complications; E78.00 Pure hypercholesterolemia, unspecified; Z79.4 Long term (current) use of insulin; G43.909 Migraine, unspecified, not intractable, without status migrainosus; W22.8XXA Striking against or struck by other objects, initial encounter
CPT/HCPCS: 99282

== ENCOUNTER 2020-09-23 14:52 | Emergency (ER) | payer MEDICARE, MEDICAID ==
[2020-09-23 16:33] LABS: Bilirubin Negative (Negative); Blood, Urine Trace (Negative); Glucose, Urine (Dipstick) 100 mg/dL (Negative); Ketone, Urine Negative (Negative); Leukocyte Moderate (Negative); Nitrite Negative (Negative); Protein, Urine (Dipstick) 100 mg/dL (Neg-Trace); Specific Gravity, Urine 1.025 (1.005-1.030); Urobilinogen 0.2 mg/dL (Less than 2)
[2020-09-23] MEDS ORDERED: Lisinopril 10 MG TAB ONE (16:37)
[2020-09-23 16:46] LABS: Anisocytosis SLIGHT = 6-15 cells (100X) (0-5/hpf); Band 4 % (5-11); Eosinophils 2 % (0-10); Hemoglobin 12.8 g/dL (12.0-16.0); Hypochromia SLIGHT = 6-15 cells (100X) (0-5/hpf); Lymphocytes 32 % (21-51); MDiff Complete? YES; Mean Corpuscular HGB CONC 30.4 g/dL (32.0-36.0); Mean Corpuscular Hemoglobin 27.3 pg (27.0-31.0); Mean Corpuscular Volume 89.7 fL (78.0-98.0); Mean Platelet Volume 7.6 fL (7.4-10.4); Monocytes 5 % (0-10); Neutrophil 57 % (42-75); Platelet Count 275 thou/uL (130-400); Platelet Morphology Comment Appears Adequate; RBC Distribution Width 12.4 % (11.5-14.5); Red Blood Cell (RBC) Count 4.69 mill/uL (4.20-5.40); White Blood Cell (WBC) Count 5.6 thou/uL (4.8-10.8)
[2020-09-23 16:48] LABS: ALT (SGPT) 13 U/L (8-55); AST (SGOT) 16 U/L (5-34); Alkaline Phosphatase 81 U/L (40-110); Anion Gap 13 mmol/L (10-20); BUN (Urea Nitrogen) 14 mg/dL (9.8-20.1); Bilirubin, Total 0.5 mg/dL (0.2-1.2); Calc. Creatinine Clearance 0 mL/min (70-130); Calcium 9.5 mg/dL (7.8-10.44); Carbon Dioxide 29 mmol/L (23-31); Chloride 103 mmol/L (98-107); Globulin 3.8 g/dL (2.4-3.5); Glucose 168 mg/dL (80-115); Potassium 3.7 mmol/L (3.5-5.1); Protein, Total 7.8 g/dL (5.8-8.1); Sodium 141 mmol/L (136-145)
[2020-09-23 16:52] LABS: Bacteria/HPF 1+ HPF (None Seen); Clarity Hazy (Clear); RBC/HPF 0-3 HPF (0-3)
== END 2020-09-23 18:10 | disposition home or self-care (01) ==
LOC: MADERS 14:52
DX: I10 Essential (primary) hypertension (principal); N39.0 Urinary tract infection, site not specified; E78.5 Hyperlipidemia, unspecified; E78.00 Pure hypercholesterolemia, unspecified; E11.9 Type 2 diabetes mellitus without complications; Z79.4 Long term (current) use of insulin; G43.909 Migraine, unspecified, not intractable, without status migrainosus; Z79.82 Long term (current) use of aspirin; Z79.899 Other long term (current) drug therapy
CPT/HCPCS: 36415; 71045; 80053; 81003; 81015; 84484; 85025; 93005

== ENCOUNTER 2020-09-27 23:53 | Emergency (ER) | payer MEDICARE, MEDICAID ==
[2020-09-28] MEDS ORDERED: diphenhydrAMINE 50 MG/ML VIAL ONE (01:52)
[2020-09-28 02:29] LABS: #Basophils 0.1 thou/uL (0.0-0.2); #Eosinphils 0.3 thou/uL (0.0-0.7); #Lymphocytes 1.5 thou/uL (1.20-3.40); #Monocytes 0.6 thou/uL (0.11-0.59); #Neutrophils 6.5 thou/uL (1.40-6.50); %Basophils 0.7 % (0.0-1.0); %Eosinophils 2.9 % (0.0-10.0); %Lymphocytes 16.5 % (21.0-51.0); %Monocytes 6.5 % (0.0-10.0); %Neutrophils 73.4 % (42.0-75.0); Hemoglobin 13.5 g/dL (12.0-16.0); Mean Corpuscular HGB CONC 30.7 g/dL (32.0-36.0); Mean Corpuscular Hemoglobin 27.5 pg (27.0-31.0); Mean Corpuscular Volume 89.7 fL (78.0-98.0); Mean Platelet Volume 7.9 fL (7.4-10.4); Platelet Count 272 thou/uL (130-400); RBC Distribution Width 12.7 % (11.5-14.5); White Blood Cell (WBC) Count 8.9 thou/uL (4.8-10.8)
[2020-09-28 02:40] LABS: Bilirubin Negative (Negative); Blood, Urine Negative (Negative); Clarity Clear (Clear); Glucose, Urine (Dipstick) 500 mg/dL (Negative); Ketone, Urine Negative (Negative); Leukocyte Small (Negative); Nitrite Negative (Negative); Protein, Urine (Dipstick) Negative (Neg-Trace); Specific Gravity, Urine 1.015 (1.005-1.030); Urobilinogen 0.2 mg/dL (Less than 2)
[2020-09-28 02:46] LABS: RBC/HPF 0-3 HPF (0-3)
[2020-09-28 02:50] LABS: ALT (SGPT) 12 U/L (8-55); AST (SGOT) 14 U/L (5-34); Albumin 3.8 g/dL (3.4-4.8); Alkaline Phosphatase 83 U/L (40-110); Anion Gap 20 mmol/L (10-20); BUN (Urea Nitrogen) 44 mg/dL (9.8-20.1); Bilirubin, Total 0.6 mg/dL (0.2-1.2); Calc. Creatinine Clearance 0 mL/min (70-130); Calcium 9.1 mg/dL (7.8-10.44); Carbon Dioxide 22 mmol/L (23-31); Chloride 99 mmol/L (98-107); Globulin 3.7 g/dL (2.4-3.5); Glucose 338 mg/dL (80-115); Potassium 4.1 mmol/L (3.5-5.1); Protein, Total 7.5 g/dL (5.8-8.1); Sodium 137 mmol/L (136-145)
[2020-09-28] MEDS ORDERED: Sodium Chloride 0.9% 1,000 ML ONE (03:04)
[2020-09-28] MEDS ORDERED: Ciprofloxacin 500 MG TAB ONE (03:04)
== END 2020-09-28 05:04 | disposition home or self-care (01) ==
LOC: MADERS 23:53
DX: E86.0 Dehydration (principal); E11.65 Type 2 diabetes mellitus with hyperglycemia; N39.0 Urinary tract infection, site not specified; R79.89 Other specified abnormal findings of blood chemistry; E78.5 Hyperlipidemia, unspecified; E78.00 Pure hypercholesterolemia, unspecified; I10 Essential (primary) hypertension; Z79.4 Long term (current) use of insulin; Z79.899 Other long term (current) drug therapy
CPT/HCPCS: 71046; 80053; 81003; 81015; 83605; 84443; 84484; 85025; 87040; 94760; 96374; J1200; J7050

== ENCOUNTER 2020-10-03 09:25 | Outpatient (CLI) | payer MEDICARE, MEDICAID ==
[2020-10-03 10:05] LABS: Anion Gap 14 mmol/L (10-20); BUN (Urea Nitrogen) 29 mg/dL (9.8-20.1); Calc. Creatinine Clearance 0 mL/min (70-130); Calcium 8.8 mg/dL (7.8-10.44); Carbon Dioxide 24 mmol/L (23-31); Chloride 103 mmol/L (98-107); Glucose 229 mg/dL (80-115); Potassium 4.2 mmol/L (3.5-5.1); Sodium 137 mmol/L (136-145)
== END 2020-10-03 09:26 | disposition home or self-care (01) ==
LOC: MADLAB 09:25
PROVIDERS: ATTEND Family Medicine
DX: E86.0 Dehydration (principal); N28.9 Disorder of kidney and ureter, unspecified
CPT/HCPCS: 36415; 80048

== ENCOUNTER 2020-10-07 11:36 | Outpatient (CLI) | payer MEDICARE, MEDICAID | END 2020-10-07 11:37 | disposition home or self-care (01) | LOC: MADRAD 11:36 | PROVIDERS: ATTEND Family Medicine | DX: M25.571 Pain in right ankle and joints of right foot (principal); G89.29 Other chronic pain; M25.471 Effusion, right ankle ==

== ENCOUNTER 2020-12-03 09:40 | Outpatient (CLI) | payer MEDICARE, MEDICAID ==
[2020-12-03 11:29] LABS: ALT (SGPT) 14 U/L (8-55); AST (SGOT) 16 U/L (5-34); Albumin 3.7 g/dL (3.4-4.8); Alkaline Phosphatase 78 U/L (40-110); Anion Gap 14 mmol/L (10-20); BUN (Urea Nitrogen) 16 mg/dL (9.8-20.1); Bilirubin, Total 0.5 mg/dL (0.2-1.2); Calc. Creatinine Clearance 0 mL/min (70-130); Calcium 9.7 mg/dL (7.8-10.44); Carbon Dioxide 25 mmol/L (23-31); Cardiac Risk 2.3 (Less than 4.5); Chloride 105 mmol/L (98-107); Cholesterol 129 mg/dl (< 200 Desired); Globulin 3.4 g/dL (2.4-3.5); Glucose 156 mg/dL (80-115); HDL Cholesterol 55 mg/dL (>60 Neg Risk); LDL Cholesterol, Calculated 56 mg/dL; Potassium 4.3 mmol/L (3.5-5.1); Protein, Total 7.1 g/dL (5.8-8.1); Sodium 140 mmol/L (136-145); Triglycerides 92 mg/dL (Less than 150)
== END 2020-12-03 09:41 | disposition home or self-care (01) ==
LOC: MADLAB 09:40
PROVIDERS: ATTEND Family Medicine
DX: I11.0 Hypertensive heart disease with heart failure (principal); I50.32 Chronic diastolic (congestive) heart failure; I24.9 Acute ischemic heart disease, unspecified; I25.110 Atherosclerotic heart disease of native coronary artery with unstable angina pectoris; E11.65 Type 2 diabetes mellitus with hyperglycemia
CPT/HCPCS: 80053; 80061; 83036

== ENCOUNTER 2021-04-03 18:57 | Emergency (ER) | payer MEDICARE, MEDICAID ==
[2021-04-03] MEDS ORDERED: Meclizine HCl 25 MG TAB ONE (22:06)
[2021-04-03] MEDS ORDERED: Ondansetron ODT 4 MG TAB ONE (22:06)
== END 2021-04-03 22:36 | disposition home or self-care (01) ==
LOC: MADERS 18:57
DX: S06.0X0A Concussion without loss of consciousness, initial encounter (principal); H55.00 Unspecified nystagmus; I10 Essential (primary) hypertension; E11.9 Type 2 diabetes mellitus without complications; E78.5 Hyperlipidemia, unspecified; E78.00 Pure hypercholesterolemia, unspecified; W01.198A Fall on same level from slipping, tripping and stumbling with subsequent striking against other object, initial encounter; Z79.4 Long term (current) use of insulin
CPT/HCPCS: 70450; Q0162

== ENCOUNTER 2021-06-11 14:07 | Emergency (ER) | payer MEDICARE, MEDICAID ==
[2021-06-11] MEDS ORDERED: Clindamycin 150 MG CAP ONE (15:56)
== END 2021-06-11 16:00 | disposition home or self-care (01) ==
LOC: MADERS 14:07
DX: L03.211 Cellulitis of face (principal); E11.9 Type 2 diabetes mellitus without complications; I10 Essential (primary) hypertension; E78.5 Hyperlipidemia, unspecified; E78.00 Pure hypercholesterolemia, unspecified; Z79.4 Long term (current) use of insulin; Z79.84 Long term (current) use of oral hypoglycemic drugs; Z79.899 Other long term (current) drug therapy; Z79.82 Long term (current) use of aspirin
CPT/HCPCS: 99283

== ENCOUNTER 2021-09-30 08:18 | Emergency (ER) | payer MEDICAID, MEDICARE, OTHER | END 2021-09-30 09:30 | disposition home or self-care (01) | LOC: MADERS 08:18 | DX: J02.9 Acute pharyngitis, unspecified (principal); I88.9 Nonspecific lymphadenitis, unspecified; E11.9 Type 2 diabetes mellitus without complications; E78.5 Hyperlipidemia, unspecified; I10 Essential (primary) hypertension; Z79.899 Other long term (current) drug therapy | CPT/HCPCS: 87081; 87430; 99283 ==

== ENCOUNTER 2021-12-07 08:27 | Emergency (ER) | payer MEDICARE, OTHER ==
[2021-12-07] MEDS ORDERED: Ibuprofen 400 MG TAB ONE (09:05)
== END 2021-12-07 09:16 | disposition home or self-care (01) ==
LOC: MADERS 08:27
DX: M54.50 Low back pain, unspecified (principal); G89.29 Other chronic pain; I10 Essential (primary) hypertension; E11.9 Type 2 diabetes mellitus without complications; E78.00 Pure hypercholesterolemia, unspecified; Z79.4 Long term (current) use of insulin
CPT/HCPCS: 99283

== ENCOUNTER 2022-06-08 09:31 | Emergency (ER) | payer MEDICAID, MEDICARE ==
[2022-06-08] MEDS ORDERED: Ondansetron PF 4 MG/2 ML Vial ONE (10:41)
[2022-06-08] MEDS ORDERED: Sodium Chloride 0.9% 1,000 ML ONE (10:41)
[2022-06-08 10:57] LABS: Base Excess-Venous 4.5 mmol/L (-2.0 to 3.0); Bicarbonate (HCO3v) 30.8 mmol/L (22.0-28.0); CO2 Tension (PvCO2) 50.4 mmHg (42.0-51.0); Calcium, Ionized 1.14 mmol/L (1.15-1.33); Chloride 106 mmol/L (98-107); Hemoglobin - Calc 16.2 g/dL (12.0-16.0); Potassium 4.2 mmol/L (3.5-5.1); Sodium 142 mmol/L (138-145); T. Carbon Dioxide 32.3 mmol/L (22.0-28.0); vO2 Saturation-calc 93.7 % (60.0-85.0)
[2022-06-08 11:01] LABS: ALT (SGPT) 12 U/L (8-55); AST (SGOT) 17 U/L (5-34); Alkaline Phosphatase 97 U/L (40-110); Anion Gap 13 mmol/L (10-20); BUN (Urea Nitrogen) 15 mg/dL (9.8-20.1); Bilirubin, Total 0.7 mg/dL (0.2-1.2); Calc. Creatinine Clearance 0 mL/min (70-130); Calcium 9.7 mg/dL (7.8-10.44); Carbon Dioxide 28 mmol/L (23-31); Chloride 101 mmol/L (98-107); Estimated GFR 60; Globulin 3.8 g/dL (2.4-3.5); Glucose 256 mg/dL (83-110); Magnesium 1.9 mg/dL (1.6-2.6); Potassium 4.2 mmol/L (3.5-5.1); Protein, Total 7.8 g/dL (5.8-8.1)
[2022-06-08 11:14] LABS: Eosinophils 1 % (0-10); Hemoglobin 13.7 g/dL (12.0-16.0); Lymphocytes 20 % (21-51); MDiff Complete? YES; Mean Corpuscular Hemoglobin 28.3 pg (27.0-31.0); Mean Corpuscular Volume 85.8 fl (78.0-98.0); Monocytes 11 % (0-10); Neutrophil 63 % (42-75); Platelet Count 364 10x3/uL (130-400); Platelet Morphology Comment Appears Adequate; RBC Morphology Normal; Reactive Lymphocytes 5 % (0-10); Red Blood Cell (RBC) Count 4.84 mill/uL (4.20-5.40); White Blood Cell (WBC) Count 7.1 10x3/uL (4.8-10.8)
[2022-06-08 11:15] LABS: Sodium 138 mmol/L (136-145)
== END 2022-06-08 11:45 | disposition home or self-care (01) ==
LOC: MADERS 09:31
DX: R11.2 Nausea with vomiting, unspecified (principal); E86.0 Dehydration; E11.9 Type 2 diabetes mellitus without complications; E78.00 Pure hypercholesterolemia, unspecified; I10 Essential (primary) hypertension; Z79.4 Long term (current) use of insulin; Z79.899 Other long term (current) drug therapy
CPT/HCPCS: 36416; 80053; 82330; 82803; 83735; 84484; 85025; 93005; 96361; 96374; 36415-59; J2405; J7050

== ENCOUNTER 2022-08-27 22:34 | Emergency (ER) | payer MEDICARE ==
[2022-08-27] MEDS ORDERED: Ibuprofen 400 MG TAB ONE (23:13)
[2022-08-27] MEDS ORDERED: Cyclobenzaprine 10 MG TAB ONE (23:13)
[2022-08-27 23:52] LABS: #Basophils 0.1 thou/uL (0.0-0.2); #Eosinphils 0.1 thou/uL (0.0-0.7); #Lymphocytes 2.6 thou/uL (1.20-3.40); #Monocytes 0.7 thou/uL (0.11-0.59); #Neutrophils 2.6 thou/uL (1.40-6.50); %Basophils 1.6 % (0.0-1.0); %Eosinophils 1.9 % (0.0-10.0); %Lymphocytes 42.9 % (21.0-51.0); %Monocytes 11.3 % (0.0-10.0); %Neutrophils 42.3 % (42.0-75.0); Hemoglobin 12.1 g/dL (12.0-16.0); Mean Corpuscular HGB CONC 33.6 g/dL (32.0-36.0); Mean Corpuscular Hemoglobin 29.8 pg (27.0-31.0); Mean Corpuscular Volume 88.8 fl (78.0-98.0); Mean Platelet Volume 8.5 fL (7.4-10.4); Platelet Count 240 10x3/uL (130-400); RBC Distribution Width 12.7 % (11.5-14.5); Red Blood Cell (RBC) Count 4.05 mill/uL (4.20-5.40); White Blood Cell (WBC) Count 6.2 10x3/uL (4.8-10.8)
[2022-08-28 00:08] LABS: Anion Gap 15 mmol/L (10-20); BUN (Urea Nitrogen) 34 mg/dL (9.8-20.1); Calc. Creatinine Clearance 0 mL/min (70-130); Calcium 9.5 mg/dL (7.8-10.44); Carbon Dioxide 24 mmol/L (23-31); Chloride 104 mmol/L (98-107); Estimated GFR 40; Glucose 119 mg/dL (83-110); Potassium 4.1 mmol/L (3.5-5.1); Sodium 139 mmol/L (136-145)
== END 2022-08-28 00:42 | disposition home or self-care (01) ==
LOC: MADERS 22:34
DX: E86.0 Dehydration (principal); I10 Essential (primary) hypertension; E11.9 Type 2 diabetes mellitus without complications; E78.00 Pure hypercholesterolemia, unspecified; Z79.4 Long term (current) use of insulin; Z79.82 Long term (current) use of aspirin; Z79.899 Other long term (current) drug therapy
CPT/HCPCS: 36415; 80048; 85025; 85379; 99283

== ENCOUNTER 2023-03-10 02:48 | Emergency (ER) | payer MEDICARE, MEDICAID ==
[2023-03-10] MEDS ORDERED: Methocarbamol 500 MG TAB ONE (03:34)
[2023-03-10] MEDS ORDERED: Ibuprofen 200 MG TAB ONE (03:34)
== END 2023-03-10 03:43 | disposition home or self-care (01) ==
LOC: MADERS 02:48
DX: M79.604 Pain in right leg (principal); M54.50 Low back pain, unspecified; E11.9 Type 2 diabetes mellitus without complications; E78.5 Hyperlipidemia, unspecified; I10 Essential (primary) hypertension; Z79.899 Other long term (current) drug therapy; Z79.4 Long term (current) use of insulin; Z79.84 Long term (current) use of oral hypoglycemic drugs; Z79.82 Long term (current) use of aspirin
CPT/HCPCS: 99283